=== PATIENT | female | born 1985 | race Caucasian/White ===

== ENCOUNTER 2017-10-19 13:00 | Outpatient (CLI) ==
--- NOTE | 2017-10-19 16:00 | CT ---
EXAM: CT Abdomen with contrast. CT Pelvis with contrast. HISTORY: Mid abdominal pain and nausea. COMPARISON: None available. TECHNIQUE: Multiple axial images of the abdomen and pelvis were obtained following intravenous admin istration of 75 mL of Omnipaque 350, low osmolar. Images were reformatted in the sagittal and galindo l plane. FINDINGS: Lung bases are clear. No acute osseous abnormality detected. The liver, gallbladder, pancreas, spleen, adrenal glands, and kidneys without acute abnormality. Brinda pect nonobstructing right renal calculi in the lower pole collecting system measuring up to 0.4 cm. The appendix is dilated to 0.9 cm and does not contain internal air. There is some submucosal fat de position in the appendix. No significant adjacent inflammation identified. The bowel is otherwise u nremarkable. A few diverticula are present in the colon, including the right colon. Uterus demonstr ates normal contour. Urinary bladder is unremarkable. No free fluid, free air or lymphadenopathy id entified. Small fat-containing umbilical hernia noted. IMPRESSION: 1. Mildly enlarged appendix without adjacent inflammation. Early/mild acute appendicitis could be p resent in the proper clinical setting although in the absence of appropriate clinical symptoms, this finding could be due to previous / chronic inflammation. Consider short-term follow-up if symptoms p ersist. 2. Right nephrolithiasis. 3. Mild diverticulosis. Comment: Findings were discussed with Giovanna Rivera at 3:55 p.m. on 10/19/2017.
== END 2017-10-19 13:01 | disposition home or self-care (01) ==
LOC: RAD 13:00
PROVIDERS: ATTEND Nurse Practitioner Family
DX: R10.9 Unspecified abdominal pain (principal); R10.815 Periumbilic abdominal tenderness; R11.2 Nausea with vomiting, unspecified; R19.7 Diarrhea, unspecified
CPT/HCPCS: 36415; 80053; 85025

== ENCOUNTER 2017-11-29 07:30 | Outpatient (CLI) ==
--- NOTE | 2017-11-29 10:06 | US ---
EXAM: ULTRASOUND ABDOMEN LIMITED HISTORY: Abdominal pain FINDINGS: Ultrasound abdomen, limited. Stanton-scale ultrasound and color Doppler was performed. Live r size was normal at about 12 cm. The liver parenchyma demonstrated normal sonographic appearance wit hout evidence of intrahepatic biliary dilatation or focal lesion. Patent and hepatopedal main portal vein. No evidence of gallbladder stones or sludge. Gallbladder wall thickness was normal at 0.16 centimete rs and the common duct diameter normal at 0.25 centimeters. The visualized portions of the pancreas appeared unremarkable. IMPRESSION: Findings within normal limits.
--- NOTE | 2017-11-29 10:19 | CT ---
EXAM: CT Abdomen with contrast. CT Pelvis with contrast. HISTORY: Mid abdominal pain, nausea. COMPARISON: 10/19/2017. TECHNIQUE: Multiple axial images of the abdomen and pelvis were obtained following intravenous admin istration of 75 mL of Omnipaque 350, low osmolar. Images were reformatted in the sagittal and galindo l plane. FINDINGS: The lung bases are clear. No acute osseous abnormality identified. The liver, gallbladder, pancreas, spleen, adrenal glands, and kidneys are unremarkable save for nonob structing calculi in the right lower pole collecting system. No hydronephrosis identified. The appendix measures up to 0.7 cm diameter. There is no adjacent inflammation. The appendiceal siz e may be slightly decreased from prior examination. Mild colonic diverticulosis noted. There is no evidence for bowel obstruction or acute inflammation. Uterus demonstrates normal contour. Urinary b ladder is unremarkable. No free fluid, free air or lymphadenopathy identified. IMPRESSION: 1. No acute abnormality within the abdomen or pelvis. 2. Prominent appendix which is slightly decreased in size from prior study. No adjacent inflammatio n identified. 3. Stable right nephrolithiasis.
== END 2017-11-29 07:31 | disposition home or self-care (01) ==
LOC: RAD 07:30
PROVIDERS: ATTEND Family Medicine
DX: R10.84 Generalized abdominal pain (principal)
CPT/HCPCS: 36415; 82565

== ENCOUNTER 2017-12-03 07:56 | Outpatient (CLI) ==
--- NOTE | 2017-12-03 11:11 | NM ---
EXAM: Hepatobiliary scan HISTORY: Abdominal pain. COMPARISON: None of this type. Ultrasound 12/04/2017. CT 11/29/2017. PROCEDURE: The patient was injected with 5.2 mCi of 99mTc mebrofenin intravenously. Images of the ab domen were obtained at 5 min intervals for 38 minutes. Additional images were obtained at 45 minute s and 1 hour. The patient was then injected with 1.3 mcg of CCK by slow infusion while images of the gallbladder were obtained to assess gallbladder contraction. The patient reported very mild pain dur ing the administration of CCK. FINDINGS: Sequential images demonstrate normal uptake of tracer into the liver. Activity is seen in the intrahepatic biliary ducts at about 10 minutes. The activity appears in the gallbladder at about 10 minutes. Subsequent images demonstrate increasing activity in the gallbladder. Activity first a ppears in the small bowel at 30 minutes. The gallbladder ejection fraction is 91% . IMPRESSION: 1.Normal hepatobiliary scan. 2.The gallbladder ejection fraction is 91% (normal).
== END 2017-12-03 07:57 | disposition home or self-care (01) ==
LOC: RAD 07:56
PROVIDERS: ATTEND Family Medicine
DX: R10.84 Generalized abdominal pain (principal)